=== PATIENT | male | born 1990 | race Caucasian/White ===

== ENCOUNTER 2020-12-20 14:18 | Emergency (ER) | payer SELFPAY ==
--- NOTE | ~2020-12-20 | XR_ITS ---
EXAMINATION: XR hand RT min 3V DATE: 12/20/2020 14:41 INDICATION: Right thumb swelling. TECHNIQUE: 3 views of right hand were obtained. COMPARISON: None. FINDINGS: Bone alignment is normal. No fracture. Joint spaces are well maintained. IMPRESSION: 1. Normal right hand. Reviewed, dictated and finalized at location A. IMPRESSION: 1. Normal right hand.
--- NOTE | 2020-12-20 14:25 | ED.UPPEXIN ---
HPI - Extremity Injury (Upper) General Chief Complaint: Extremity Injury, Upper Stated Complaint: Swollen, Pain in right Hand Time Seen by Provider: 12/20/20 14:25 Source: patient and RN notes reviewed History of Present Illness HPI narrative: Patient is a 30-year-old male who presents the urgent care with complaints of pain in the right hand with swelling. Patient states that the swelling him pain have been ongoing for approximately 2 months. 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 Patient states that he has had a wound to the right thumb for approximately 6 months however he snagged it yesterday and it caused him tingling and pain through the right thumb. Patient denies of fever, chills, nausea, vomiting. Patient has not taken anything [id number] for his pain or discomfort. No other acute complaints. No acute distress noted. Patient aware of the plan of care. Some parts of this dictation were generated by voice recognition software and may contain typographical and/or grammatical inaccuracies. Related Data Allergies Allergy/AdvReac Type Severity Reaction Status Date / Time No Known Allergies Allergy Verified 12/20/20 14:37 Review of Systems Review of Systems: Narrative: CONSTITUTIONAL: Denies fever, chills, or sweats. EYES: Denies visual changes, redness, or discharge. ENT: Denies rhinorrhea, congestion, sore throat, or otalgia. CARDIOVASCULAR: Denies chest pain, palpitations, or edema. RESPIRATORY: Denies cough or dyspnea. GASTROINTESTINAL: Denies abdominal pain, nausea, vomiting, or diarrhea. GENITOURINARY: Denies dysuria or hematuria. SKIN: Reports of a wound to the tip of the right thumb MUSCULOSKELETAL: Reports of right thumb/hand pain and tingling NEUROLOGIC: Denies headache, numbness, or weakness. All other systems reviewed are negative, except as documented in HPI. PMFSH Comments At the time of my signature, I reviewed and agree with the nursing past medical, surgical, social, and family history. There is no relevant family history pertinent to the patient complaint. Exam Narrative: Exam Narrative: GENERAL: This is a well-nourished, well-developed patient, in no apparent distress. HEAD: normocephalic, atraumatic. EYES: PERRL. Sclera clear/white. Vision is grossly intact. EARS: External ears normal NOSE: External nose normal with no obvious nasal discharge, nares without redness, no rhinorrhea. THROAT: Mucous membranes moist NECK: Neck supple CARDIOVASCULAR: Regular rate and rhythm without murmurs, gallops, or rubs. RESPIRATORY: Clear to auscultation. Breath sounds equal bilaterally. No wheezes, rales, or rhonchi. SKIN: 1 cm callused slightly open wound to the distal tuft of the right thumb with surrounding blanching without erythema or edema NEURO: awake, alert, and oriented to person, place and time. There were no obvious focal neurologic abnormalities. EXTREMITIES: Range of motion to right upper extremity within normal limits. Positive strong right radial pulse with capillary refill less than 2 seconds. No obvious deformity or fracture. Slight edema noted to the thenar eminence of the right hand Course Vital Signs Vital signs: Vital Signs Temperature 98.1 F 12/20/20 14:31 Pulse Rate 103 H 12/20/20 14:31 Respiratory Rate 18 12/20/20 14:31 Blood Pressure 190/104 H 12/20/20 14:31 Pulse Oximetry 98 12/20/20 14:31 Temperature 98.1 F 12/20/20 14:39 Pulse Rate 103 H 12/20/20 14:39 Respiratory Rate 18 12/20/20 14:39 Blood Pressure 190/104 H 12/20/20 14:39 Pulse Oximetry 98 12/20/20 14:39 Reviewed?patient is informed that they may have pre-hypertension or hypertension based on a blood pressure reading in the department. I recommend the patient call the primary care provider listed on their discharge instructions or a physician of their choice this week to arrange follow-up for further evaluation of possible pre-hyper
[2020-12-20 14:31] VITALS: BP 190/104; PULSE 103; RESP 18; TEMP 36.7; O2SAT 98
[2020-12-20 14:39] VITALS: BP 190/104; PULSE 103; RESP 18; TEMP 36.7; O2SAT 98
--- NOTE | 2020-12-20 14:58 | PC.NURSE ---
PT DECLINED ICE FOR COMFORT
== END 2020-12-20 15:05 | disposition home or self-care (01) ==
PROVIDERS: Emergency Provider Nurse Practitioner Family
DX: S61.001A Unspecified open wound of right thumb without damage to nail, initial encounter (principal); X58.XXXA Exposure to other specified factors, initial encounter
CPT/HCPCS: 73130; 99213; G0463

== ENCOUNTER 2022-04-14 14:28 | Emergency (ER) | payer SELFPAY ==
[2022-04-14 14:34] VITALS: BP 186/97; PULSE 101; RESP 20; TEMP 36.8; O2SAT 98
--- NOTE | 2022-04-14 14:47 | ED.GENADULT ---
HPI - General Adult General Chief complaint: Wound/Laceration Stated complaint: Laceration to Finger Source: patient Mode of arrival: ambulatory Limitations: no limitations History of Present Illness HPI narrative: Patient presents for evaluation of a wound to the distal phalanx of the fifth digit of the right hand. He indicates he was carrying a pocket knife earlier today. The knife slipped and he attempted to catch it. He cut his finger in the process. He reports bleeding from the affected area. Denies pain whatsoever. No paresthesias. No loss of range of motion. He is not diabetic. He smokes 2 packs/day. Date of last tetanus unknown. Related Data Home Medications Medication Instructions Recorded Confirmed No Home Medications 04/14/22 04/14/22 Allergies Allergy/AdvReac Type Severity Reaction Status Date / Time No Known Allergies Allergy Verified 04/14/22 14:41 Review of Systems Review of Systems: CONSTITUTIONAL: Denies fever, chills, or sweats. EYES: Denies visual changes, redness, or discharge. ENT: Denies rhinorrhea, congestion, sore throat, or otalgia. CARDIOVASCULAR: Denies chest pain, palpitations, or edema. RESPIRATORY: Denies cough or dyspnea. GASTROINTESTINAL: Denies abdominal pain, nausea, vomiting, or diarrhea. GENITOURINARY: Denies dysuria or hematuria. SKIN: Reports laceration to the fifth digit of the right hand MUSCULOSKELETAL: Denies back pain, joint pain, or myalgia. NEUROLOGIC: Denies headache, numbness, dizziness, or weakness. PSYCHIATRIC: Denies anxiety or depression. [facility] Past Medical History Medical History (Updated 04/14/22 @ 15:04 by ROLA Joel, ) No pertinent past medical history Surgical History Surgical History No pertinent past surgical history Family History Family History Mother Heart disease Diabetes mellitus Kidney disease Father Diabetes mellitus Heart disease Social History Social History Smoking packs per day: 2 Smoking cigarettes per day: 40.0 Smoking status: Current every day smoker Substance use: never Gender identity (if verbalized by the patient): Male Spiritual care concerns: No Exam Narrative: GENERAL: Well-appearing, well-nourished, and in no acute distress. HEAD: Normocephalic, atraumatic. EYES: PERRLA and EOMI. ENT: Nares clear, no rhinorrhea or epistaxis. Mucous membranes moist. Oropharynx without tonsillar hypertrophy exudate or other lesions. Bilateral TMs pearly gerardo nonbulging NECK: Supple. No adenopathy or masses. No carotid bruits or JVD CHEST: Clear to auscultation. No respiratory distress. No wheezes rales or rhonchi HEART: Regular rate and rhythm. No murmur heard. Normal peripheral pulses. ABDOMEN: Soft, nontender, nondistended, normal active bowel sounds. EXTREMITIES: Normal range of motion. No edema. SKIN: There is a 2mm superficial laceration in a linear formation to the distal phalanx of the fifth digit of the right hand. There is a scant amount of sanguinous drainage noted. There is a small amount of sanguinous drainage noted to the fifth digit of the right hand and the palmar aspect of the right hand. NEURO: No focal deficits. Alert and oriented x3. PSYCH: Normal mood and affect. Course Course Emergency Course: This is a 55-[id number]-[id number]-old male who presented for evaluation of a wound to the fifth digit of the right hand. On my initial evaluation, there is minimal bleeding. Dried blood was cleaned from the hand. Wound was irrigated. Discussed risk versus benefits of therapies and we agreed on gluing laceration closed. Dermabond applied and patient tolerated well. Wound was very superficial so x-ray not clinically indicated. He was updated on tetanus. Advised not to smoke. Advised on wound care. Follow-up o
[2022-04-14] MEDS: TETANUS,DIPHTHERIA,AC PERTUSSIS ADULT (0.5 ML) BOOSTRIX IM (14:51)
== END 2022-04-14 15:12 | disposition home or self-care (01) ==
PROVIDERS: Emergency Provider Nurse Practitioner
DX: S61.216A Laceration without foreign body of right little finger without damage to nail, initial encounter (principal); W26.0XXA Contact with knife, initial encounter; Z23 Encounter for immunization; F17.210 Nicotine dependence, cigarettes, uncomplicated
CPT/HCPCS: 12001; 90471; 90715; 99212; G0463